=== PATIENT | female | born 1970 | race Caucasian/White ===

== ENCOUNTER 2017-12-30 09:45 | Outpatient (REF) | payer MEDICARE, SELFPAY ==
[2017-12-31 11:03] LABS: Campylobacter PCR SEE COMMENTS; Salmonella PCR SEE COMMENTS; Shiga Toxin PCR SEE COMMENTS; Shigella/Enteroinvasive Ecoli SEE COMMENTS
== END 2017-12-30 10:05 ==
LOC: LBN 09:45
PROVIDERS: PCP Family Medicine; Visit Provider Family Medicine
DX: R19.7 Diarrhea, unspecified (principal); L02.216 Cutaneous abscess of umbilicus
CPT/HCPCS: 87329; 87505; 82272; 83630

== ENCOUNTER 2018-01-01 07:54 | Outpatient (REF) | payer MEDICARE, SELFPAY | END 2018-01-01 08:14 | LOC: LBO 07:54 | PROVIDERS: PCP Family Medicine; Visit Provider Family Medicine | DX: R19.7 Diarrhea, unspecified (principal); L02.216 Cutaneous abscess of umbilicus | CPT/HCPCS: 87329 ==

== ENCOUNTER 2018-01-19 01:07 | Outpatient (CLI) | payer MEDICARE, SELFPAY ==
--- NOTE | 2018-01-19 08:00 | DI.MAMMO_ITS ---
SYMPTOMS/DIAGNOSIS: SCREENING MAMMOGRAM: Mammograms were interpreted according to the usual protocol including computer analysis with CAD system, tomosynthesis and C view imaging. The breasts are heterogeneously dense. There are prominent mass-like radiodensities seen in both breasts, most prominent laterally on the CC view of the left breast and medially on CC view of the right breast. These are much less prominent on MLO views. Comparison with the previous examinations including April 2014 shows no significant interval change in appearance. The findings are most likely to represent asymmetric breast tissue. CONCLUSION: No specific evidence of malignancy at this time. Follow-up mammogram requested in 12 months to reevaluate apparently stable bilateral asymmetric breast radiodensities. Category 2, breast density category C. MQSA ASSESSMENT OF FINDINGS: Negative with benign findings. Category 2. Patient will receive a letter notifying them of these results. Bi-RADS category C. The breasts are heterogeneously dense, which may obscure small masses.
== END 2018-01-19 01:27 ==
PROVIDERS: PCP Family Medicine
DX: Z12.31 Encounter for screening mammogram for malignant neoplasm of breast (principal); N60.81 Other benign mammary dysplasias of right breast; N60.82 Other benign mammary dysplasias of left breast
CPT/HCPCS: 77063; 77067

== ENCOUNTER 2019-12-21 00:57 | Outpatient (CLI) | payer OTHER, SELFPAY ==
--- NOTE | 2019-12-21 | DI.MRI_ITS ---
EXAM: MR LOWER JOINT RT WO CLINICAL HISTORY: RT HIP PAIN, M25.551, LABRAL TEAR SUSPECTED, RT HIP CLINICAL FEMORAL. TECHNIQUE: Multiplanar multisequence MRI was performed. T1 fat-suppressed T2 axial and coronal sequ ences were performed with the field of view including both hips. Fat-suppressed proton density and f at-suppressed T2 sagittal sequences were performed with the field of view including the right hip. COMPARISON: CR HIP RIGHT 2 VIEWS W/PELVIS from 12/07/2019 FINDINGS: Several small subchondral cysts are noted in the anterior acetabulum. A few other small subchondral cysts are seen in the superior acetabulum. No labral tear is visible. No joint effusion is seen. T here is no evidence of fracture or contusion. No tendon abnormalities are identified. A dominant fo llicle is noted on the left ovary. There are few small uterine fibroids. Bladder is unremarkable. IMPRESSION: Mild degenerative changes of the right hip with subchondral cysts seen in the anterior and superior p ortions of the acetabulum. DATA REPOSITORY:
== END 2019-12-21 01:17 ==
PROVIDERS: PCP Family Medicine; Visit Provider Orthopaedic Surgery Sports Medicine
DX: M16.11 Unilateral primary osteoarthritis, right hip (principal); M85.68 Other cyst of bone, other site
CPT/HCPCS: 73721

== ENCOUNTER 2022-03-10 02:28 | Outpatient (CLI) | payer MEDICARE, SELFPAY ==
--- NOTE | 2022-03-10 | DI.MAMMO_ITS ---
Exam(s) MAMMO SCREENING EXAM: MAMMO SCREENING CLINICAL HISTORY: SCREENING MAMMO FOR BREAST CANCER Z12.31 [facility] Z00.00 TECHNIQUE: Mammograms were interpreted according to the usual protocol including computer analysis w [employer] CAD system, tomosynthesis and C-view imaging. COMPARISON: 2014 and 2017. FINDINGS: The breasts are composed of heterogeneously dense fibroglandular densities, Breast Density category C . No suspicious masses or suspicious microcalcifications are seen. Stable areas of nodularity are note d in both breasts. No skin thickening or abnormal axillary lymph nodes are seen. There has been no significant change from prior exams. IMPRESSION: BI-RADS Cat 2 - Benign Findings Yearly screening mammography is recommended. Breast Density Category C, heterogeneously Dense. The mammogram demonstrates the patient's breast tissue is dense. Dense breast tissue is very common a nd is not abnormal but dense breast tissue can make it harder to find cancer on a mammogram. Also, de nse breast tissue may increase breast cancer risk. This information about the result of the mammogram report was provided to the patient to raise their awareness. Use this report when you speak with the patient about their risks for breast cancer, which includes their family history. At that time, you may recommend additional screening tests (Ultrasound or MRI) as they might be useful based on their r isk. A negative radiographic report should not delay biopsy if a dominant or clinically suspicious mass is present. Up to ten percent of cancers are not identified on mammography. A negative report may reinforce clinical impression. Adenosis and dense breasts may obscure an underlying neoplasm. False positive reports average 6 to 10%.
== END 2022-03-10 02:48 ==
PROVIDERS: PCP Family Medicine; Visit Provider Family Medicine
DX: Z12.31 Encounter for screening mammogram for malignant neoplasm of breast (principal); R92.8 Other abnormal and inconclusive findings on diagnostic imaging of breast
CPT/HCPCS: 77063; 77067

== ENCOUNTER 2023-08-20 08:42 | Outpatient (RCR) | payer MEDICARE, SELFPAY ==
--- NOTE | 2023-08-20 08:45 | HOLTER_ITS ---
APPROVED REPORT Conclusion This is a 48-hour Holter monitor Rhythm throughout was sinus with an average heart rate of 68. Minimum was 44, maximum 130 There were no ventricular dysrhythmias There were very rare isolated atrial premature beats No patient symptoms were reported
== END 2023-08-30 23:59 | disposition home or self-care (01) ==
LOC: CARDOPNVT 08:42
PROVIDERS: PCP Family Medicine; Visit Provider Family Medicine
DX: R00.1 Bradycardia, unspecified (principal)
CPT/HCPCS: 93227; 93225; 93226

== ENCOUNTER → 2024-08-01 14:33 | Outpatient (BNVA) | payer MEDICARE, SELFPAY | PROVIDERS: PCP Family Medicine; Referring Provider Family Medicine; Visit Provider Psychiatry & Neurology Neurology | DX: R41.3 Other amnesia (principal); F07.81 Postconcussional syndrome; R56.9 Unspecified convulsions; R40.4 Transient alteration of awareness; G43.009 Migraine without aura, not intractable, without status migrainosus; Z87.820 Personal history of traumatic brain injury | CPT/HCPCS: 99205; G2212 ==

== ENCOUNTER → 2024-10-04 14:18 | Outpatient (BNVA) | payer MEDICARE, SELFPAY | PROVIDERS: PCP Family Medicine; Referring Provider Family Medicine; Visit Provider Psychiatry & Neurology Neurology | DX: R41.3 Other amnesia (principal); F07.81 Postconcussional syndrome; R56.9 Unspecified convulsions; R40.4 Transient alteration of awareness; G43.009 Migraine without aura, not intractable, without status migrainosus | CPT/HCPCS: 99215 ==

== ENCOUNTER → 2025-01-09 03:44 | Outpatient (CLI) | payer MEDICARE, SELFPAY ==
--- NOTE | 2025-01-09 | DI.MAMMO_ITS ---
Exam(s) MAMMO SCREENING EXAM: MAMMO SCREENING CLINICAL HISTORY: SCREENING, ADULT HEALTH EXAMINATION, Z00.00. TECHNIQUE: Bilateral full field digital CC and MLO mammographic images were obtained with 3D tomosynthesis and utilizing computer aided detection (CAD). COMPARISON: Prior mammograms dating back to 2018 were reviewed. FINDINGS: There has been no significant change in the appearance and distribution of the fibroglandular tissue. Nodular density laterally in the left breast is unchanged from 2018. Another lobulated nodule in the medial aspect of the right breast is also unchanged from 2018. There are no new spiculated masses nor new malignant appearing microcalcification groups. There is no significant architectural distortion nor skin thickening-retraction. IMPRESSION: Stable bilateral nodules which appear unchanged from 2018. No radiographic evidence of malignancy. 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 BI-RADS Category 2 - Benign Findings Breast Density - Category C - The breast are heterogeneously dense, which may obscure small masses. Breast density Category C or D implies that the patient has dense breast tissue. Dense breast tissue can make it harder to find cancer on a mammogram. Dense breast tissue is also associated with an increased risk of breast cancer. This information about the result of the mammogram report was provided to the patient to raise their awareness. Use this report when you speak with the patient about their risks for breast cancer, which includes their family history. At that time, you may recommend additional screening tests (Ultrasound or MRI) as these tests may add significant information. A negative radiographic report should not delay biopsy if a dominant or clinically suspicious mass is present. Up to ten percent of cancers are not identified on mammography. A negative report may reinforce clinical impression. Adenosis and dense breasts may obscure an underlying neoplasm. False positive reports average 6 to 10%. Patient will receive a letter notifying them of these results.
== END ==
PROVIDERS: PCP Family Medicine; Visit Provider Family Medicine
DX: Z00.00 Encounter for general adult medical examination without abnormal findings (principal); Z12.31 Encounter for screening mammogram for malignant neoplasm of breast; R92.323 Mammographic fibroglandular density, bilateral breasts
CPT/HCPCS: 77063; 77067